=== PATIENT | male | born 1995 | race African-American/Black ===

== ENCOUNTER 2020-09-19 11:52 | Emergency (ER) | payer OTHER ==
[~2020-09-19] VITALS: Ht 193 cm; Wt 82.0 kg
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
[2020-09-19] MEDS ORDERED: NAPR-514 PO (14:42)
[2020-09-19] MEDS ORDERED: CYCL10TA2 PO (14:42)
[2020-09-19 15:13] VITALS: BP 152/96
== END 2020-09-19 15:17 | disposition home or self-care (01) ==
LOC: ER 11:52
DX: S13.9XXA Sprain of joints and ligaments of unspecified parts of neck, initial encounter (principal); M54.5 Low back pain; M25.552 Pain in left hip; R51.9 Headache, unspecified; M54.6 Pain in thoracic spine; F17.200 Nicotine dependence, unspecified, uncomplicated; V49.49XA Driver injured in collision with other motor vehicles in traffic accident, initial encounter; Y92.488 Other paved roadways as the place of occurrence of the external cause; Y93.89 Activity, other specified; Y99.8 Other external cause status
CPT/HCPCS: 70450; 72125; 72128; 72131; 73502; 99285-25